=== PATIENT | male | born 1970 | race Hispanic/Latino ===

== ENCOUNTER 2017-05-15 09:03 | Emergency (ER) | payer OTHER ==
[~2017-05-15] VITALS: Ht 162.6 cm; Wt 63.6 kg
[2017-05-15 09:15] VITALS: BP 106/73; PULSE 87; RESP 20; O2SAT 99
--- NOTE | 2017-05-15 09:34 | ED.REPORT ---
HPI-URI / Cough / Cold Date of Service May 15, 2017 ED Provider: Jona Gold DO Patient is a 47 year old male who presents to the ED complaining of a productive cough onset one month ago s/p returning from [place]. Once he starts coughing, he feels like he is choking because he is working so heard to cough up clear, thick, sputum. He has been seen by both his PCP and at who diagnosed him with URI and prescribed in inhalers, prednisone, and abx without relief. He denies fevers, chills, chest pain, abdominal pain, nausea, vomiting, constipation, diarrhea, hematochezia, headache, or any other symptoms. Nursing Notes Stated Complaint: consistent coughing Chief Complaint: Respiratory Distress Nursing Notes Reviewed: Yes Allergies: Coded Allergies: No Known Allergies (Unverified , 05/15/17) Scheduled Amoxicillin/Clav K 875-125 mg (Augmentin 875-125 mg) 1 Each Tablet 1 TABLET PO BID Prednisone (PredniSONE) 20 Mg Tablet 40 MG PO DAILY General Time Seen by MD: 09:25 Chief Complaint Cough, productive... (Clear) Hx Obtained From: Patient Arrived By: Walk-in Onset Occurred: More than a week ago... (3 weeks) Symptom Duration: Since onset Severity: Current: No pain currently Severity: Maximum: No pain Context: Immunization Status General: Unknown Recent Healthcare: Recent doctor visit Past Medical History Past Medical History Hyperlipidemia Anxiety Past Surgical History None reported Smoking History Current Every Day Smoker Social History Other Social History: Good social support Ambulatory Status Independent Review of Systems Constitutional: Denies: Chills, Fever Respiratory: Reports: Prod cough, clear GI: Denies: Abdominal pain, Constipation, Diarrhea, Hematochezia, Nausea, Vomiting Neurologic: Denies: Headache Complete sys rev & neg: except as marked. Cardiovascular: Denies: Chest pain Physical Exam Initial Vital Signs Vital Signs (First) Date Time Temp Pulse Resp B/P Pulse Ox O2 Delivery O2 Flow Rate FiO2 05/15/17 09:15 36.8 87 20 106/73 99 Room Air Initial VS: Reviewed, Vital signs normal Head / Eyes: Atraumatic, Normocephalic Neck: Supple, Full range of motion Abdomen / GI: Soft, Non-tender Skin: Warm, Dry Neurologic: Alert, Oriented, Nonfocal Psychiatric: Mood/affect normal, Behavior normal, Normal thought content General/Constitutional: Awake, Alert, No acute distress ENT: Airway patent Respiratory / Chest: Atraumatic, Breath sounds NL, Breath sounds = bilat, No respiratory distress Interpretation & Diagnostics X-Ray Chest Interpretation Chest Xray Interpretation: IMPRESSION: 1. No acute cardiopulmonary disease. Dictated by: Josemanuel Meza M.D. on 05/15/2017 at 10:17 Approved by: Josemanuel Meza M.D. on 05/15/2017 at 10:18 View: AP & lat Interpretation / Wet Read by: Interpret - Radiologist Re-Eval/Medical Decision Med Decision/Clinical Course Med Decision/Clinical Course: Symptoms of a URI. Will treat with prednisone and Augmentin. Recommend close outpatient follow-up. No witnessed evidence of coughing or difficulty breathing while in the ER. X-ray normal. Return and follow-up precautions given Re-Evaluation/Progress : Time of Eval: 10:35 Re-Evaluation/Progress Note: Discussed imaging results and plan for discharge. Patient understands and agrees with plan. All questions addressed at this time. Counseled Regarding: Diagnosis, Lab results, Need for follow-up, When/why to return to ED Discharge & Departure Impression: Primary Impression: URI, acute Disposition: Home Discharge Condition All VS Reviewed: Yes Condition: Stable Patient Instructions: Upper Respiratory Infection (ED), Viral Pneumonia (ED) Additional Instructions: Your x-ray is reassuring. Your lung exam is clear. Continue the current medications you are taking. Additionally use prednisone and Augmentin. Call your doctor as soon as possible for close follow-up appointment and reevaluation. Return to the ER as needed. ------- Hamilton radiografa es reconfortante. Hamilton examen de pulmn es po. Contine con los medicamentos actuales que est tomando. Adems, use prednisona y Augmentin. Llame a hamilton mdico bliss pronto jordin sea posible para la anali de seguimiento y la reevaluacin. Vuelva a la lucy de emergencias segn sea necesario. Referrals: Marya العلي MD (PCP) Scribe Attestation Portions of this note were transcribed by Reno Perez. IDr. Gold personally performed the history, physical exam and medical decision-making; I reviewed and confirmed the accuracy of the information in the transcribed note. Signed: Seng Castorena, 05/15/17 copies to: Marya العلي MD, Timothy S DO May 15, 2017 09:34 RENO PEREZ May 15, 2017 09:41
--- NOTE | 2017-05-15 10:19 | DRSVH ---
PROCEDURE: X-RAY CHEST, TWO VIEWS ([id number]) INDICATIONS: sob/cough, recent travel to [place] TECHNIQUE: 2 views of the chest were acquired. COMPARISON: [facility], , CHEST 2VW, 07/26/2014, 9:29. FINDINGS: Surgical changes and devices: None. Lungs and pleura: No pleural effusions or pneumothorax. Lungs are clear. Mediastinum: Mediastinal contours are normal. Heart size is normal. Bones and chest wall: No suspicious bony abnormalities. Soft tissues appear unremarkable. IMPRESSION: 1. No acute cardiopulmonary disease. Dictated by: Josemanuel Meza M.D. on 05/15/2017 at 10:17 Approved by: Josemanuel Meza M.D. on 05/15/2017 at 10:18
[2017-05-15] MEDS ORDERED: PRE20 PO (10:37)
[2017-05-15] MEDS ORDERED: AMOX-366 PO (10:37)
== END 2017-05-15 11:36 | disposition home or self-care (01) ==
LOC: SED 09:03
DX: J06.9 Acute upper respiratory infection, unspecified (principal); E78.5 Hyperlipidemia, unspecified; F17.200 Nicotine dependence, unspecified, uncomplicated